=== PATIENT | female | born 1990 ===

== ENCOUNTER 2017-11-19 05:30 | Inpatient (IN) | payer BC, OTHER ==
[2017-11-19] MEDS: Penicillin G 2.5 MILL.units 50 ML IVPB SCH ×3 (02:20→22:15)
[2017-11-19] MEDS: Lactated Ringer's 1,000 ML IV SCH (08:32)
[2017-11-19 09:05] VITALS: BMI 29.2
[2017-11-19] MEDS ORDERED: Sodium Chloride 0.9% 100 ML ONE (09:42)
[2017-11-19 09:44] LABS: Mean Corpuscular HGB CONC 35.7 g/dL (32.0-36.0); Mean Corpuscular Hemoglobin 33.9 pg (27.0-31.0); Mean Corpuscular Volume 95.1 fL (78.0-98.0); Mean Platelet Volume 8.6 fL (7.4-10.4); Platelet Count 153 thou/uL (130-400); RBC Distribution Width 12.1 % (11.5-14.5); Red Blood Cell (RBC) Count 3.82 mill/uL (4.20-5.40); White Blood Cell (WBC) Count 6.7 thou/uL (4.8-10.8)
[2017-11-19] MEDS ORDERED: NS w/ Oxytocin 10 units 500 ML IVPB SCH (09:45)
[2017-11-19] MEDS ORDERED: Methylergonovine 0.2 MG/ML VIAL IM PRN (09:45)
[2017-11-19] MEDS ORDERED: Lidocaine 1% (PF) 30 ML VIAL SC PRN (09:45)
[2017-11-19] MEDS ORDERED: Misoprostol 200 MCG TAB RC PRN (09:45)
[2017-11-19] MEDS ORDERED: Misoprostol 100 MCG TAB VAG SCH (09:45)
[2017-11-19] MEDS ORDERED: Ibuprofen 800 MG TAB PO PRN (09:45)
[2017-11-19] MEDS ORDERED: Promethazine HCl 25 MG/ML VIAL IM PRN ×2 (09:46→20:01)
[2017-11-19] MEDS ORDERED: Ondansetron HCl/PF 4 MG/2 ML Vial IVP PRN ×2 (09:46→20:01)
[2017-11-19] MEDS ORDERED: Butorphanol Tartrate 1 MG/ML VIAL SLOW IVP PRN (09:46)
[2017-11-19] MEDS ORDERED: Lactated Ringer's 1,000 ML IV SCH (09:46)
[2017-11-19] MEDS ORDERED: Penicillin G Potassium 5 MILL.UNITS in Sodium Chloride 0.9% 100 ML IVPB SCH (10:00)
[2017-11-19 10:20] LABS: Syphilis Antibody Nonreactive (Nonreactive); Syphilis Antibody Index 0.04 S/CO (<1.00 Non-Reactive)
[2017-11-19 12:19] LABS: Hep B Surf Ag Reactive S/CO (NonReactive)
[2017-11-19] MEDS ORDERED: Bupivacaine 0.75% 13.4 ML, fentaNYL Citrate/PF 400 MCG in Sodium Chloride 0.9% 78.6 ML EPIDURAL SCH (19:15)
[2017-11-19] MEDS ORDERED: DISCONTINUE ALL PREVIOUS NARCOTICS FS SCH (19:15)
[2017-11-19] MEDS ORDERED: ePHEDrine/0.9% NaCl/PF SYRINGE 50 mg/10 ml ONE (20:00)
[2017-11-19] MEDS ORDERED: Bupivacaine/Epinephrine 0.25% 30 ML VIAL ONE (20:00)
[2017-11-19] MEDS ORDERED: Acetaminophen 325 MG TAB PO PRN (20:01)
[2017-11-19] MEDS ORDERED: Naloxone HCl 0.4 mg/ml Vial IVP PRN ×2 (20:01)
[2017-11-19] MEDS ORDERED: ePHEDrine/0.9% NaCl/PF SYRINGE 50 mg/10 ml SLOW IVP PRN (20:01)
[2017-11-19] MEDS ORDERED: Lactated Ringer's 500 ML IV PRN (20:01)
[2017-11-19] MEDS ORDERED: diphenhydrAMINE 50 MG/ML VIAL IVP PRN (20:01)
[2017-11-19] MEDS ORDERED: Eucerin (Mineral Oil/Petrolatum,White) 30 gm Jar TOP PRN (20:01)
[2017-11-19] MEDS ORDERED: fentaNYL Citrate/PF 400 MCG, Bupivacaine 0.5% 20 ML in Sodium Chloride 0.9% 72 ML EPIDURAL SCH (20:15)
[2017-11-19] MEDS ORDERED: Communication Order-Pharmacy FS SCH (20:15)
[2017-11-20] MEDS: Lactated Ringer's 1,000 ML IV SCH ×5 (00:05→22:47)
[2017-11-20] MEDS: Misoprostol 100 MCG TAB VAG SCH ×5 (00:05→11:18)
[2017-11-20] MEDS: NS / Oxytocin 40 units/1000ml 1,000 ML IV SCH ×2 (00:06→03:02)
[2017-11-20] MEDS ORDERED: Zolpidem Tartrate 5 MG TAB PO PRN (00:43)
[2017-11-20] MEDS ORDERED: diphenhydrAMINE 25 MG CAP PO PRN (00:45)
[2017-11-20] MEDS ORDERED: Bisacodyl 10 MG SUPP PR PRN (00:45)
[2017-11-20] MEDS ORDERED: Milk Of Magnesia 30 ML UDCUP PO PRN (00:45)
[2017-11-20] MEDS ORDERED: Lanolin Ointment 7 GM TUBE TOP PRN (00:45)
[2017-11-20] MEDS ORDERED: HYDROcodone/Acetaminophen 5/325 mg Tablet PO PRN ×2 (00:45)
[2017-11-20] MEDS ORDERED: NS / Oxytocin 40 units/1000ml 1,000 ML IV SCH (00:45)
[2017-11-20] MEDS ORDERED: Ondansetron HCl/PF 4 MG/2 ML Vial IVP PRN (00:45)
[2017-11-20] MEDS ORDERED: Preparation H Ointment 28 GM TUBE PR PRN (00:45)
[2017-11-20] MEDS ORDERED: Sodium Chloride 0.9% 1,000 ML IV SCH (00:45)
[2017-11-20] MEDS ORDERED: Adacel (T-DAP) 0.5 ML VIAL IM SCH (01:00)
[2017-11-20] MEDS: Penicillin G 2.5 MILL.units 50 ML IVPB SCH ×3 (03:02→11:18)
[2017-11-20] MEDS: Ibuprofen 800 MG TAB PO SCH ×3 (05:13→21:02)
[2017-11-20 05:56] LABS: Hemoglobin 11.4 g/dL (12.0-16.0); Mean Corpuscular Hemoglobin 32.4 pg (27.0-31.0); Mean Corpuscular Volume 95.5 fL (78.0-98.0); Mean Platelet Volume 7.8 fL (7.4-10.4); Platelet Count 125 thou/uL (130-400); RBC Distribution Width 11.9 % (11.5-14.5); Red Blood Cell (RBC) Count 3.51 mill/uL (4.20-5.40); White Blood Cell (WBC) Count 9.7 thou/uL (4.8-10.8)
[2017-11-20] MEDS: Docusate Calcium (SURFAK) 240 MG CAP PO SCH ×2 (09:06→21:01)
[2017-11-20] MEDS: Prenatal Vitamin 1 TAB PO SCH (09:06)
[2017-11-20] MEDS: Ferrous Sulfate 325 MG TAB PO SCH ×2 (09:06→19:57)
[2017-11-21] MEDS: Ibuprofen 800 MG TAB PO SCH ×2 (05:53→14:00)
[2017-11-21] MEDS: Docusate Calcium (SURFAK) 240 MG CAP PO SCH (09:21)
[2017-11-21] MEDS: Prenatal Vitamin 1 TAB PO SCH (09:21)
[2017-11-21] MEDS: Ferrous Sulfate 325 MG TAB PO SCH (09:21)
[2017-11-21 12:21] VITALS: BP 90/56; TEMP 98.4
[2017-11-21] MEDS: Lactated Ringer's 1,000 ML IV SCH (14:00)
== END 2017-11-21 16:05 | disposition home or self-care (01) | DRG 775 ==
LOC: L&D 07:41 → 3SW 11-20 03:18
PROVIDERS: ADMIT Obstetrics & Gynecology; ATTEND Obstetrics & Gynecology
PROC: 0KQM0ZZ Repair Perineum Muscle, Open Approach (ICD-10-PCS; principal; 2017-11-19)
PROC: 10E0XZZ Delivery of Products of Conception, External Approach (ICD-10-PCS; 2017-11-19)
PROC: 0W8NXZZ Division of Female Perineum, External Approach (ICD-10-PCS; 2017-11-19)
PROC: 3E0S3BZ Introduction of Anesthetic Agent into Epidural Space, Percutaneous Approach (ICD-10-PCS; 2017-11-19)
PROC: 00HU33Z Insertion of Infusion Device into Spinal Canal, Percutaneous Approach (ICD-10-PCS; 2017-11-19)
DX: O41.03X0 Oligohydramnios, third trimester, not applicable or unspecified (principal); O70.1 Second degree perineal laceration during delivery; O75.89 Other specified complications of labor and delivery; O28.8 Other abnormal findings on antenatal screening of mother; O99.820 Streptococcus B carrier state complicating pregnancy; Z37.0 Single live birth; Z3A.39 39 weeks gestation of pregnancy
CPT/HCPCS: 36415; 51702; 85027; 86780; 86850; 86900; 86901; 87340; J2001; J2540; J3010; J7050